=== PATIENT | male | born 1970 | race Caucasian/White ===

== ENCOUNTER 2024-05-11 06:44 | Day surgery (SDC) | payer OTHER, SELFPAY ==
[2024-05-11] VITALS (8 sets, daily range): BP systolic 104–112; BP diastolic 74–80; PULSE 49–59; RESP 14–18; TEMP 36.1–36.3; O2SAT 97–100; BMI 25.7
[2024-05-11] MEDS: Lactated Ringers 1,000 ML 15 ML IV (07:23)
--- NOTE | 2024-05-11 07:30 | PRE.ANES_ITS ---
ASA Classification* ASA Classification ASA Classification: 2 Assessment & Plan Anesthesia* Anesthesia Assessment Anesthesia Assessment: Discussed sedation and/or anesthesia options, risks, benefits, and alternatives with patient/parents/legal guardian/POA. Questions invited. The patient/parents/legal guardian/POA seems to understand and agrees to proceed with anesthesia plan. Reviewed the physical assessment, medical history, allergy history and patient home medications list prior to surgery/procedure/anesthetic and documented any changes. Performed airway and anesthesia risk assessments. 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 When Was Last Pacemaker Check QUESTION #4 FULL TEXT: You/Your Family Experience fever (hyperthermia) with Anesthesia Last Oral Intake Last Oral intake: Last Oral Intake NPO since 05:45 05/11/24 07:06 Meds taken in AM with sips of water? Meds patient instructed to take am of surgery PONV PONV - bush and vine fruit crop farmer: PONV - bush and vine fruit crop farmer Female No 05/04/24 11:34 HX of Motion Sickness Yes 05/04/24 11:34 HX of N/V After Surgery No 05/04/24 11:34 Non-Smoker Yes 05/04/24 11:34 Duration of Surgery greater No 05/04/24 11:34 than 60 minutes Number of Risk Factors 2 05/04/24 11:34 PONV Score Moderate Risk 05/04/24 11:34 Height & Weight Height & Weight: Anesthesia: Height & Weight Height 5 ft 6 in 05/11/24 07:06 Weight: 72.2 kg 05/11/24 07:06 Body Mass Index (BMI) 25.7 05/11/24 07:06 Respiratory Assessment Respiratory Assessment - bush and vine fruit crop farmer: Respiratory Tract Infection Hx - bush and vine fruit crop farmer Hx Respiratory Tract Infection No 05/04/24 11:34 STOP Sleep Apnea STOP Sleep Apnea - bush and vine fruit crop farmer: STOP Sleep Apnea - bush and vine fruit crop farmer Hx Hypertension No 05/04/24 11:34 Hx Sleep Apnea No 05/04/24 11:34 CPAP BIPAP Do you snore loudly (louder Yes 05/04/24 11:34 than talking or can be heard Do you often feel tired/ No 05/04/24 11:34 fatigued/ sleepy during daytime? Has anyone observed you stop No 05/04/24 11:34 breathing during sleep? STOP Results Negative 05/04/24 11:34 QUESTION #5 FULL TEXT : Do you snore loudly (louder than talking or can be heard through closed doors)? 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 Specify any problems Hx of Preganancy in last 3 N/A 05/04/24 11:34 Months Nurse Filling Out Transfusion SFRANTZ 05/04/24 11:34 & Questions: Date: 05/04/24 05/04/24 11:34 Time: 11:37 05/04/24 11:34 Patient unable to answer at this time (ie. confused, unrespo /Reproduction History /Reproductive History - bush and vine fruit crop farmer: /Reproductive Hx- bush and vine fruit crop farmer Hx Now No 05/04/24 11:34 Gestational Age (in weeks): EDC: Hx Hx Para Hx Section SAB No 05/04/24 11:34 Active Medications Active Medications: Current Medications Generic Name Dose Route Start Last Admin Trade Name Freq PRN Reason Stop Dose Admin Lactated Ringer's 1,000 mls @ 15 mls/hr 05/11/24 07:00 05/11/24 07:23 IV 15 mls/hr .Q48H BRENNAN Administration PFSH Medical History Non-smoker Medical History no medical history Home Medications ?Medication ?Instructions ?Recorded ?Last Taken ?Type NK 03/24/24 Unknown History Allergy/AdvReac Type Severity Reaction Status Date / Time No Known Allergies Allergy Verified 05/11/24 07:06 Family History no significant family his Surgical History Hx of surgical procedure Surgical History no surgical history Social History household members: spouse current occupational status: employed Smoking Status: Never smoker Review of Systems (Anesthesia) ROS Narrative System reviewed and no additional complaints, except as documented.
--- NOTE | 2024-05-11 07:54 | PCM.HP.STD ---
HPI - General General Date of Admission: 05/11/24 Date of Service: 05/11/24 Chief Complaint: Screening colonoscopy HPI Narrative DEANGELO ROSE, is a 54 M who presents today for his first colonoscopy. He has not had a colonoscopy in the past. He has no significant past medical history and he does not take any medicines on a daily basis. PFSH Medical History Non-smoker Medical History no medical history Home Medications ?Medication ?Instructions ?Recorded ?Last Taken ?Type NK 03/24/24 Unknown History Allergy/AdvReac Type Severity Reaction Status Date / Time No Known Allergies Allergy Verified 05/11/24 07:06 Family History no significant family his Surgical History Hx of surgical procedure Surgical History no surgical history Social History household members: spouse current occupational status: employed Smoking Status: Never smoker ROS Review of Systems ROS Unobtainable: other Constitutional Constitutional: Denies fatigue, fever(s), poor appetite, weight gain or weight loss ENT HEENT: Denies mouth lesions Cardiovascular Cardiovascular: Denies abdominal bloating, abdominal edema or abdominal pain Respiratory/Chest Respiratory/Chest: Denies change in mental status, change in phlegm color, chest congestion or chest tightness Gastrointestinal Gastrointestinal: Denies belching, bloating, change in bowel habits, change in stool character, chewing difficulty, coffee ground emesis, constipation, cramping, diarrhea, dyspepsia, dysphagia, early satiety, excessive flatus, fecal incontinence, heartburn, hematemesis, hematochezia, hemorrhoids, loose stools, melena, nausea, odynophagia, rectal bleeding, tenesmus, vomiting or weight changes Genitourinary Genitourinary: Denies abdominal discomfort, burning urination or itching Musculoskeletal Musculoskeletal: Reports as per HPI; Denies muscle weakness or myalgias Integumentary Integumentary: Denies jaundice Neurologic Neurologic: Denies lack of coordination or weakness Psychiatric Psychiatric: Denies confusion, depression, memory loss, mood swings, paranoia or suicidal ideation Endocrine Endocrinology: Denies systems reviewed and no addt'l complaints, except as documented Hematologic/Lymphatic Hematologic/Lymphatic: Denies anemia, easy bleeding, easy bruising or lymphadenopathy Allergic/Immunologic Allergic/Immunologic: Denies systems reviewed and no addt'l complaints, except as documented Vital Signs Vital Signs Vital Signs: 05/11/24 07:06 05/11/24 07:06 05/11/24 07:30 Temperature 97.2 F L 97.2 F L Temperature Source Temporal Pulse Rate 49 L 49 L Respiratory Rate 16 16 Respiratory Pattern Normal Blood Pressure 112/75 112/75 Blood Pressure Mean 87 Blood Pressure Source Monitor Blood Pressure Position Semi-Fowlers Blood Pressure Location Right Arm Pulse Ox 100 100 Oxygen Delivery Method Room Air Weight Weight: 159 lb 2.78 oz Body Mass Index (BMI) 25.7 Physical Exam Const alert General Appearance: cooperative Orientation / Consciousness: oriented to person HEENT hearing grossly normal bilaterally Head and Scalp: normal to inspection Face and Sinus: face symmetric Nose: external nose normal Mouth: oral and palatal mucosa normal Eyes conjunctivae normal General Eye: normal appearance of both eyes Neck full ROM General: normal visual inspection Lymph Lymphatic: no lymphadenopathy noted Chest inspection of chest normal and palpation of chest normal Chest: symmetrical chest wall rise Resp normal respiratory effort Effort and Inspection: able to speak in complete sentences Cardio regular rate GI non-distended Percussion: normal to percussion Rectal Exam: deferred Neuro Speech: speech normal Gait (Neuro): normal gait Assessment & Plan Assessment/Plan (1) Encounter for screening for malignant neoplasm of colon: PLAN: He was explained alternatives, risk, benefits including not withstanding bleeding, infection, sepsis, perforation, need for emergent surgery and . He will have an ASA of 3.
--- NOTE | 2024-05-11 08:00 | COLBX_PTH ---
PATIENT: DEANGELO HOLLAND LOC: EN U#:[id number] AGE/SX: 54/M ROOM: RE05/11/[address]: Dr. Andrew Whipple DO : 1970 BED: DIS: 05/11/2024 SPEC #: [id number] RECD: 05/11/24 10:16 STATUS: FABIANO DOMINICK #: [id number] DARY: 05/11/24 08:[address]: Andrew Whipple DEPT: SURGICAL PATHOLOGY RECD BY: Yaw Patel ENTERED: 05/11/24 11:19 SP TYPE: COLON BX OTHR DR: No Primary Care Phys Tissues: Rectum, NOS Procedures: Surgery Specimen Level IV HEADER OPERATION: Colonoscopy with polyp biopsy PRE-OP DIAGNOSIS: Screening TISSUE SUBMITTED: Rectal polyp MICROSCOPIC DIAGNOSIS Rectal polyp, biopsy: Hyperplastic polyp. DELMAR/ 05/12/2024 MICROSCOPIC DESCRIPTION Slides are reviewed. GROSS DESCRIPTION Received in fixative is one container labeled with the patient's name and designated Rectal polyp. The specimen consists of one irregular fragment of light vera soft tissue that measures 0.2 x 0.2 x 0.1 cm. The specimen is totally submitted in one cassette. DELMAR/ 05/11/2024 TC:1 CPT:60530
--- NOTE | 2024-05-11 08:21 | PCM.POST.ANE ---
Anesthesia: Postop Eval I Current Vital Signs Temperature: 97 F Pulse Rate: 57 Blood Pressure: 112/76 Respiratory Rate: 18 Pulse Ox: 98 Assessment Airway patent: Yes Spontaneous unlabored respirations: Yes nausea: No Vomiting: No Anesthesia Complication: No Fluid Hydration Crystalloid volume administer (ml): 500 Total IV fluid infused: 500 Progress Note Anesthesia document: Postop Eval 1 completed: Yes
--- NOTE | 2024-05-11 08:23 | OP.CCLET_ITS ---
05/11/2024 No Primary Care Physician Re : Colonoscopy procedure for Quentin Dee Dear Care Physician This procedure was performed on Saturday, May 11, 2024. My impressions and recommendations are as follows: Impressions : - Hemorrhoids found on perianal exam. - One 3 mm polyp in the rectum, removed with a jumbo cold forceps. Resected and retrieved. - Diverticulosis in the recto-sigmoid colon. - The examination was otherwise normal on direct and retroflexion views. Recommendations : - Discharge patient to home. - Resume previous diet. - Continue present medications. - Await pathology results. - Repeat colonoscopy in 5 years for surveillance. My findings are described in the full procedure note, which is enclosed. If I can be of further assistance, please feel free to contact me at . Sincerely, Andrew Friend, 05/11/2024 8:23:18 AM This report has been signed electronically.
--- NOTE | 2024-05-11 08:23 | OP.COLON_ITS ---
Patient Name: Quentin Dee Procedure Date: 05/11/2024 7:57 AM Date of : 1970 Age: 54 Procedure: Colonoscopy Indications: Screening for colorectal malignant neoplasm Providers: Andrew Whipple DO Referring MD: Andrew Whipple DO Medicines: Monitored Anesthesia Care Patient Profile: This is a 54 year old male. Refer to note in patient chart for documentation of history and physical. Last Colonoscopy: none. The patient's first colonoscopy is today. Complications: No immediate complications. Procedure: Pre-Anesthesia Assessment: - Prior to the procedure, a History and Physical was performed, and patient medications and allergies were reviewed. The patient is competent. The risks and benefits of the procedure and the sedation options and risks were discussed with the patient. All questions were answered and informed consent was obtained. Patient identification and proposed procedure were verified by the physician in the pre-procedure area. Mental Status Examination: alert and oriented. Airway Examination: normal oropharyngeal airway and neck mobility. Respiratory Examination: clear to auscultation. CV Examination: normal. Prophylactic Antibiotics: The patient does not require prophylactic antibiotics. Prior Anticoagulants: The patient has taken no anticoagulant or antiplatelet agents. ASA Grade Assessment: II - A patient with mild systemic disease. After reviewing the risks and benefits, the patient was deemed in satisfactory condition to undergo the procedure. The anesthesia plan was to use monitored anesthesia care (MAC). Immediately prior to administration of medications, the patient was re-assessed for adequacy to receive sedatives. The heart rate, respiratory rate, oxygen saturations, blood pressure, adequacy of pulmonary ventilation, and response to care were monitored throughout the procedure. The physical status of the patient was re-assessed after the procedure. After I obtained informed consent, the scope was passed under direct vision. Throughout the procedure, the patient's blood pressure, pulse, and oxygen saturations were monitored continuously. The Colonoscope was introduced through the anus and advanced to the cecum, identified by appendiceal orifice and ileocecal valve. The colonoscopy was performed without difficulty. The patient tolerated the procedure well. The quality of the bowel preparation was adequate. The ileocecal valve, appendiceal orifice, and rectum were photographed. Scope In: 8:03:47 AM Scope Withdrawal Time 0 hours 9 minutes 59 seconds Scope Out: 8:18:08 AM Total Procedure Duration Time 0 hours 14 minutes 21 seconds Findings: Hemorrhoids were found on perianal exam. A 3 mm polyp was found in the rectum. The polyp was sessile. The polyp was removed with a jumbo cold forceps. Resection and retrieval were complete. Verification of patient identification for the specimen was done. Estimated blood loss was minimal. A few small-mouthed diverticula were found in the recto-sigmoid colon. The exam was otherwise without abnormality on direct and retroflexion views. Impression: - Hemorrhoids found on perianal exam. - One 3 mm polyp in the rectum, removed with a jumbo cold forceps. Resected and retrieved. - Diverticulosis in the recto-sigmoid colon. - The examination was otherwise normal on direct and retroflexion views. Recommendation: - Discharge patient to home. - Resume previous diet. - Continue present medications. - Await pathology results. - Repeat colonoscopy in 5 years for surveillance. Procedure Code(s): --- Professional --- 93948, Colonoscopy, flexible; with biopsy, single or multiple CPT copyright 2021 [employer]. All rights reserved. The codes documented in this report are preliminary and upon surgical coder review may be revised to meet current compliance requirements. Andrew Whipple DO 05/11/2024 8:23:18 AM This report has been signed electronically. Number of Addenda: 0 Note Initiated On: 05/11/2024 7:57 AM
--- NOTE | 2024-05-11 09:08 | POSTOPAN2_ITS ---
Anesthesia Postop Eval I Sum Postop Eval Completion status Anesthesia document: Postop Eval 1 completed: Yes Anesthesia Postop Eval I Summary Anesthesia Postop Eval I Summary: Anesthesia Postop Eval I: Assessment Summary Airway patent Yes 05/11/24 08:21 GREEN BUILDING ARCHITECT.CSIR Spontaneous unlabored Yes 05/11/24 08:21 GREEN BUILDING ARCHITECT.CSIR respirations Mental status nausea No 05/11/24 08:21 GREEN BUILDING ARCHITECT.CSIR Vomiting No 05/11/24 08:21 GREEN BUILDING ARCHITECT.CSIR Anesthesia Postop Eval I: Fluid Summary Crystalloid volume administer 500 05/11/24 08:21 GREEN BUILDING ARCHITECT.CSIR (ml) Colloids volume administered ( ml) Blood Product volume administered (ml) Total IV fluid infused 500 05/11/24 08:21 GREEN BUILDING ARCHITECT.CSIR Anesthesia Postop Eval I: Summary Notes Anesthesia Complication No 05/11/24 08:21 GREEN BUILDING ARCHITECT.CSIR Anesthesia Complication Comment: Post-operative progress note Anesthesia: Postop Eval II Evaluation Mental status: Awake Pain Level: 0 nausea: No Vomiting: No Complications Anesthesia Complication: No
--- NOTE | 2024-05-11 09:08 | PCM.POSTANE2 ---
Anesthesia Postop Eval I Sum Postop Eval Completion status Anesthesia document: Postop Eval 1 completed: Yes Anesthesia Postop Eval I Summary Anesthesia Postop Eval I Summary: Anesthesia Postop Eval I: Assessment Summary Airway patent Yes 05/11/24 08:21 REPULPING SUPERVISOR.[email or web address] Spontaneous unlabored Yes 05/11/24 08:21 REPULPING SUPERVISOR.CSIR respirations Mental status nausea No 05/11/24 08:21 REPULPING SUPERVISOR.CSIR Vomiting No 05/11/24 08:21 REPULPING SUPERVISOR.CSIR Anesthesia Postop Eval I: Fluid Summary Crystalloid volume administer 500 05/11/24 08:21 REPULPING SUPERVISOR.CSIR (ml) Colloids volume administered ( ml) Blood Product volume administered (ml) Total IV fluid infused 500 05/11/24 08:21 REPULPING SUPERVISOR.CSIR Anesthesia Postop Eval I: Summary Notes Anesthesia Complication No 05/11/24 08:21 REPULPING SUPERVISOR.CSIR Anesthesia Complication Comment: Post-operative progress note Anesthesia: Postop Eval II Evaluation Mental status: Awake Pain Level: 0 nausea: No Vomiting: No Complications Anesthesia Complication: No
== END 2024-05-11 08:55 | disposition home or self-care (01) ==
LOC: EN 06:51 → AC 06:53
PROVIDERS: Referring Provider Internal Medicine Gastroenterology; Visit Provider Internal Medicine Gastroenterology
PROC: 0DJD8ZZ Inspection of Lower Intestinal Tract, Via Natural or Artificial Opening Endoscopic (ICD-10-PCS; CPT 45378; principal; 2024-05-11 07:55)
DX: Z12.11 Encounter for screening for malignant neoplasm of colon (principal); K64.9 Unspecified hemorrhoids; K57.90 Diverticulosis of intestine, part unspecified, without perforation or abscess without bleeding; K62.1 Rectal polyp
CPT/HCPCS: 45380; 88305; J7120; J2405